=== PATIENT | male | born 1960 | race Caucasian/White ===

== ENCOUNTER → 2021-01-04 16:20 | Outpatient (BNVA) | payer MEDICARE, SELFPAY | PROVIDERS: Visit Provider Nurse Practitioner Family | DX: I10 Essential (primary) hypertension (principal); R53.83 Other fatigue; R05 Cough; R10.84 Generalized abdominal pain; R59.1 Generalized enlarged lymph nodes; M25.561 Pain in right knee; M25.562 Pain in left knee; G89.29 Other chronic pain; Z68.23 Body mass index [BMI] 23.0-23.9, adult; F17.210 Nicotine dependence, cigarettes, uncomplicated | CPT/HCPCS: 80053; 80061; 81003; 84443; 85025 ==

== ENCOUNTER 2021-01-15 12:28 | Outpatient (CLI) | payer MEDICARE, SELFPAY ==
--- NOTE | 2021-01-15 14:00 | CT_ITS ---
WS: [id number] Exam: CT chest abd pel w con* Date/Time of Exam: 01/15/2021 12:42 PM Reason For Exam: R53.83 - Other fatigue DLP: 2365.[address] scans at [facility] use at least one of these dose optimization techniques: automat ed exposure control; mA and/or kV adjustment per patient size (includes targeted exams where dose is matched to clinical indication); or iterative reconstruction. CT scan of the chest with IV contrast. The lungs are clear and fully inflated. The airway is patent. The thoracic aorta is normal in caliber. No significant mediastinal or hilar lymphadenopathy. Coronar y artery calcifications. No pleural or pericardial effusion. Normal thyroid tissue. No axillary lymph adenopathy. No destructive bone lesions or chest wall defects. CT/CT chest abd pel w con* IMPRESSION: 1. No mass or lymphadenopathy in the chest. CT scan of the abdomen and pelvis with contrast. The liver, stomach, spleen and pancreas appear normal. No calcified stones in t he gallbladder. The abdominal aorta is normal in caliber. The portal vein and I VC are patent. A 2.5 cm left adrenal nodule is noted. A 1.3 cm right adrenal no dule is noted. These may represent adrenal adenomas. The kidneys demonstrate no rmal function. No renal obstruction. No lymphadenopathy. No free air. Small bow el loops are not dilated. There is moderately advanced diverticulosis of the si gmoid and lower descending colon. No sign of acute diverticulitis. No sign of acute appendix. No mass or lymphad enopathy in the pelvis. Intact urinary bladder. No destructive bone lesions are seen. IMPRESSION: 1. Bilateral adrenal nodules that may represent adrenal adenomas. 2. Advanced diverticulosis of the sigmoid and lower descending colon but no sig n of acute diverticulitis. 3. No mass or lymphadenopathy in the abdomen or pelvis.
[2021-01-15] MEDS: iohexol 300 mg/mL 100 mL Btl IV (14:17)
[2021-01-15] MEDS: iohexol 300 mg/mL 50 mL Btl PO (14:18)
== END 2021-01-15 12:29 | disposition home or self-care (01) ==
PROVIDERS: Visit Provider Nurse Practitioner Family
DX: R53.83 Other fatigue (principal); R10.9 Unspecified abdominal pain; R05 Cough; R59.9 Enlarged lymph nodes, unspecified; K57.30 Diverticulosis of large intestine without perforation or abscess without bleeding
CPT/HCPCS: 71260; 74177; Q9967

== ENCOUNTER → 2021-01-31 09:25 | Outpatient (BNVA) | payer MEDICARE, SELFPAY | PROVIDERS: PCP Nurse Practitioner Family; Visit Provider Nurse Practitioner Family | DX: R73.9 Hyperglycemia, unspecified (principal); E27.8 Other specified disorders of adrenal gland | CPT/HCPCS: 80048; 82533; 83036; 85025 ==

== ENCOUNTER 2021-02-27 14:56 | Outpatient (CLI) | payer MEDICARE, SELFPAY ==
--- NOTE | 2021-02-27 15:00 | US_ITS ---
WS: [id number] ULTRASOUND SOFT TISSUES RIGHT neck. HISTORY: R59.1 - Generalized enlarged lymph nodes COMPARISON: None available. TECHNIQUE: 2-D and color Doppler imaging is submitted. In the palpable region near the RIGHT submandibular gland is an abnormal cystic and solid mass. This mass measures 1.7 x 3.3 x 3.6 cm. There is a solid lobulated component with increased vascularity. Th is may be a lymph node. If this is a lymph node is abnormal. An adjacent normal submandibular gland i s not identified. US/US soft tissue head neck [id number] IMPRESSION: Abnormal soft tissue mass with cystic and solid components in the RIGHT submand ibular region. This may be a submandibular gland mass or an abnormal lymph node . Recommend follow-up neck CT with IV contrast.
== END 2021-02-27 14:57 | disposition home or self-care (01) ==
LOC: US 14:59
PROVIDERS: PCP Nurse Practitioner Family; Visit Provider Nurse Practitioner Family
DX: R59.1 Generalized enlarged lymph nodes (principal)
CPT/HCPCS: 76536

== ENCOUNTER → 2021-03-07 09:54 | Outpatient (BNVA) | payer MEDICARE, SELFPAY | PROVIDERS: PCP Nurse Practitioner Family; Visit Provider Nurse Practitioner Family | DX: R10.11 Right upper quadrant pain (principal) | CPT/HCPCS: 80053; 85025 ==

== ENCOUNTER 2021-03-08 06:46 | Outpatient (CLI) | payer MEDICARE, SELFPAY ==
--- NOTE | 2021-03-08 07:15 | US_ITS ---
WS: [id number] ULTRASOUND ABDOMEN LIMITED CLINICAL INFORMATION: R10.11 - Right upper quadrant pain COMPARISON: None. FINDINGS: Liver Size: Enlarged Craniocaudal length: 17.3 cm. Echogenicity: Diffuse fatty infiltration Surface nodularity: None. Mass (size and location): Hypoechoic area near the caudate lobe of the liver measuring 2.6 x 2.1 x 3. 4 cm nonspecific but likely represents focal fatty sparing. No abnormalities in this area on the prio r CT abdomen pelvis from January 15, 2021. Bile ducts Intrahepatic ducts: Normal. Common bile duct diameter: 0.7 cm. Gallbladder Normal. Gallstones: None. Gallbladder sludge: None. Gallbladder wall thickening: None. Pericholecystic fluid: None. Sonographic Beavers sign: Absent. Pancreas Normal as visualized. Right kidney: Normal. Hydronephrosis: None. Size: 11.4 cm x 6.0 cm x 5.8 cm. Abdominal aorta and IVC Visualized portions are normal. Ascites: None. US/US gall bladder [id number] IMPRESSION: 1. Diffuse fatty infiltration of the liver. Prominent hepatomegaly with liver extending beyond the midline.. 2. Hypoechoic lesion near the caudate lobe of the liver measuring 2.6 x 2.1 x 3.4 cm nonspecific but most likely represents focal fatty sparing. Underlying l esion or metastatic disease difficult to entirely exclude. This can be further evaluated with MRI liver without and with gadolinium enhancement or triphasic c ontrast-enhanced CT abdomen pelvis with liver protocol. 3. Normal gallbladder. 4. No hydronephrosis in right kidney. 5. Normal common bile duct.
== END 2021-03-08 06:47 | disposition home or self-care (01) ==
LOC: RAD 06:51
PROVIDERS: PCP Nurse Practitioner Family; Visit Provider Nurse Practitioner Family
DX: R10.11 Right upper quadrant pain (principal); K76.0 Fatty (change of) liver, not elsewhere classified; R16.0 Hepatomegaly, not elsewhere classified
CPT/HCPCS: 76705

== ENCOUNTER 2021-03-14 06:43 | Outpatient (CLI) | payer MEDICARE, SELFPAY ==
--- NOTE | 2021-03-14 08:00 | NM_ITS ---
WS: [id number] NUCLEAR MEDICINE HIDA SCAN WITH GALLBLADDER EJECTION FRACTION HISTORY: R10.11 - Right upper quadrant pain COMPARISON: Gallbladder ultrasound 03/08/2021 TECHNIQUE: The patient was intravenously injected with 5.8 mCi of TC99m Mebrofenin. Immediate imaging over the right upper quadrant was followed by 5 minute image and additional images for a total of 60 minutes. Normal uptake of radiotracer throughout the liver. Activity identified in the gallbladder at 10 minutes and well distended by 60 minutes. Activity in the proximal small bowel was seen by 20 minutes. Good washout of the radiotracer from the liver by 60 minutes. The patient then drank 8 ounces of Ensure Plus. Ejection fraction at 60 minutes was 37%. Normal GB ej ection fraction is 35-75%. Post fatty meal symptoms: None. NM/NM hepatobiliary w phar* [id number] IMPRESSION: 1. Normal HIDA scan. 2. Normal gallbladder ejection fraction. Low normal gallbladder ejection fract ion.
--- NOTE | 2021-03-14 11:30 | CT_ITS ---
WS: [id number] CT NECK WITH CONTRAST HISTORY: R59.1 - Generalized enlarged lymph nodes TECHNIQUE: Contiguous 5 mm axial images are performed through the neck with intravenous contrast. Sag ittal and coronal reformats are also submitted. All CT scans at [facility] use at least o ne of these dose optimization techniques: automated exposure control; mA and/or kV adjustment per pat ient size (includes targeted exams where dose is matched to clinical indication); or iterative recons truction. CONTRAST: CONTRAST: Omnipaque 300; 95 mL IV. DLP: 1424.21 mGy.cm COMPARISON: None available. Small calcifications in the LEFT palatine tonsil. Low-attenuation nonenhancing 5 mm nodule in the LEF T suprahyoid soft tissue. Vocal cords are unremarkable. No additional masses or abnormal enhancement. No asymmetry at the tongue base. Torus tubarius and fossa of Rosenmuller and parapharyngeal fat are normal. Numerous the small bilateral cervical chain lymph nodes. Normal fatty félix are still present. Largest lymph nodes at level IIa measuring up to 8 mm. Bilateral moderately enhancing superficial parotid gland masses. LEFT parotid gland mass is mildly he terogeneous in enhancement with a few cystic areas measuring 17 x 13 mm. Superficial RIGHT parotid ma ss is also mixed density measuring 15 x 10 mm. 2 mm anterolisthesis of C2 and C3. Moderate degenerative disc disease at C6-7. Mild atherosclerotic plaque within the intracranial carotid arteries. Visualized paranasal sinuses and mastoid air cells are normal. Mild emphysematous changes at the lung apices. Mild atherosclerotic plaque within the visualized aort a. CT/CT neck w con* [id number] IMPRESSION: 1. Bilateral parotid gland heterogeneously enhancing masses. 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 Recommend follow-up with ENT. 2. Cystic nonenhancing mass in the LEFT suprahyoid parapharyngeal soft tissue. This can be further evaluated with direct visualization. 3. Small bilateral cervical chain lymph nodes.
== END 2021-03-14 06:44 | disposition home or self-care (01) ==
PROVIDERS: PCP Nurse Practitioner Family; Visit Provider Nurse Practitioner Family
DX: R10.11 Right upper quadrant pain (principal); R11.10 Vomiting, unspecified; R22.1 Localized swelling, mass and lump, neck
CPT/HCPCS: 70491; 78227; A9537

== ENCOUNTER 2021-04-10 08:25 | Outpatient (CLI) | payer MEDICARE, SELFPAY ==
--- NOTE | 2021-04-10 08:29 | MR_ITS ---
WS: [id number] MRI OF THE ABDOMEN WITHOUT AND WITH GADOLINIUM ENHANCEMENT INDICATION: Hepatomegaly. Evaluate liver lesion TECHNIQUE: Axial T2, axial 2-D fiesta, dual Echo, pre and post gadolinium multiplanar imaging was obt ained. Coronal 2-D fiesta. Some images degraded by motion. FINDINGS: Comparison ultrasound [address] January 15, 2021 Hepatomegaly. Mild diffuse fatty infiltration of the liver. Normal portal vein and splenic vein. Norm al hepatic veins. No suspicious enhancing hepatic lesions to correspond to the ultrasound findings. N o T2 hyperintense lesions. Normal spleen. No intrahepatic biliary duct dilatation. Normal gallbladder . No cholelithiasis. Bilateral adrenal adenomas with signal dropout on the out of phase imaging uncha nged since the prior CT. Mild dilatation of the pancreatic duct. T2 hyperintense nonenhancing lesions involving the pancreatic body measuring 11 x 9 mm and 19 x 11 mm. No abnormal gadolinium enhancement. These appear contiguous with the pancreatic duct likely representing IPMN. Recommend 6 month follow-up MRI abdomen. Normal caliber abdominal aorta. Moderate aortic atheromatous disease. Normal renal parenchymal enhanc ement. Normal GE junction. No evidence of choledocholithiasis. Normal common bile duct measuring 5.8 mm. Normal renal parenchymal enhancement. No hydronephrosis. Tiny right renal cyst MR/MR abdomen wo/w con* [id number] IMPRESSION: 1. No enhancing hepatic lesions to correspond to the ultrasound findings. Diff use fatty infiltration the liver with hepatomegaly. 2. Normal gallbladder and common bile duct. 3. T2 hyperintense nonenhancing pancreatic lesions in the body of the pancreas measuring 11 x 9 mm and 19 x 11 mm. These likely represent IPMN's. Recommend 6 month follow-up MRI abdomen without and with gadolinium enhancement. 4. Bilateral adrenal adenomas unchanged since the recent CT. 5. Moderate aortic atheromatous disease. 6. No other significant findings.
[2021-04-10] MEDS: gadobenate dimeglumine 20 mL vial IV (09:07)
== END 2021-04-10 08:26 | disposition home or self-care (01) ==
PROVIDERS: PCP Nurse Practitioner Family; Visit Provider Surgery
DX: R16.0 Hepatomegaly, not elsewhere classified (principal); I70.0 Atherosclerosis of aorta; D35.02 Benign neoplasm of left adrenal gland; D35.01 Benign neoplasm of right adrenal gland
CPT/HCPCS: 74183; A9577

== ENCOUNTER → 2021-05-04 10:33 | Outpatient (BNVA) | payer MEDICARE, SELFPAY | PROVIDERS: PCP Nurse Practitioner Family; Visit Provider Nurse Practitioner Family | DX: R10.11 Right upper quadrant pain (principal); S30.860A Insect bite (nonvenomous) of lower back and pelvis, initial encounter; W57.XXXA Bitten or stung by nonvenomous insect and other nonvenomous arthropods, initial encounter; F10.20 Alcohol dependence, uncomplicated; K29.70 Gastritis, unspecified, without bleeding; K57.90 Diverticulosis of intestine, part unspecified, without perforation or abscess without bleeding | CPT/HCPCS: 80053; 82150; 83690; 85025; 86618; 86666; 86757 ==

== ENCOUNTER → 2021-08-27 14:30 | Outpatient (BNVA) | payer MEDICARE, SELFPAY | PROVIDERS: PCP Nurse Practitioner Family; Visit Provider Nurse Practitioner Family | DX: I10 Essential (primary) hypertension (principal); R53.83 Other fatigue; K29.70 Gastritis, unspecified, without bleeding; R73.9 Hyperglycemia, unspecified | CPT/HCPCS: 80053; 80061; 85007; 85027 ==